=== PATIENT | male | born 1970 | race Caucasian/White ===

== ENCOUNTER 2019-01-09 20:55 | Inpatient (IN) ==
[2019-01-09] MEDS ORDERED: HYDROmorphone 2 MG/1 ML VIAL IV PRN (23:36)
[2019-01-10] MEDS: SODIUM CHLORIDE 0.9% 1,000 ML IV SCH ×2 (00:24→10:07)
[2019-01-10] MEDS: HYDROmorphone 2 MG/1 ML VIAL IV PRN ×2 (00:29→04:25)
[2019-01-10] MEDS: MEROPENEM 1,000 MG in SODIUM CHLORIDE 0.9% 100 ML IV SCH ×3 (01:14→16:25)
[2019-01-10 06:00] LABS: Basophils % 0.3 % (0.0-0.8); Eosinophils % 0.1 % (0.00-10.9); Hematocrit 44.9 VOL% (42.0-52.0); Hemoglobin 14.5 GM/DL (14.0-18.0); Immature Granulocytes % 0.7 %; Immature Granulocytes Absolute 0.11 #; Lymphocytes % 12.5 % (21.2-54.2); Mean Corpuscular HGB Conc 32.3 GM/DL (32-36); Mean Corpuscular Volume 88.9 FL (87-102); Monocytes % 9.8 % (1.7-12.7); Neutrophils % 76.6 % (38.7-73.9); Platelet Count 286 T/CUMM (130-400); Red Blood Count 5.05 MC/CUMM (3.8-5.5); Red Cell Distribution Width 12.7 % (9.3-17.3); White Blood Count 15.6 T/CUMM (4-12)
[2019-01-10 06:20] LABS: Albumin 3.4 G/DL (3.4-5.0); Bilirubin,Total 1.1 MG/DL (0.2-1.0); Calcium 8.8 MG/DL (8.5-10.1); Osmolality,Calculated 283.3 MOS/KG (273-304); Total Protein 6.8 G/DL (6.4-8.3)
[2019-01-10] MEDS ORDERED: INDOMETHACIN SUPP 50 MG SUPP RECTAL ONE (08:52)
[2019-01-10] MEDS ORDERED: ROCURONIUM 100 MG/10 ML VIAL IV ONE (09:00)
[2019-01-10] MEDS ORDERED: LIDOCAINE 2% 5 ML VIAL ONE (09:00)
[2019-01-10] MEDS ORDERED: NEOSTIGMINE 10 MG/10 ML VIAL ONE (09:00)
[2019-01-10] MEDS ORDERED: DEXAMETHASONE 4 MG/1 ML VIAL ONE (09:00)
[2019-01-10] MEDS ORDERED: GLYCOPYRROLATE 0.4 MG/2 ML VIAL ONE (09:00)
[2019-01-10] MEDS ORDERED: PROPOFOL 200 MG/20 ML VIAL IV ONE (09:00)
[2019-01-10] MEDS ORDERED: ONDANSETRON 4 MG/2 ML VIAL ONE (09:00)
[2019-01-10] MEDS: LACTATED RINGERS 1,000 ML IV SCH (10:07)
[2019-01-10] MEDS ORDERED: MIDAZOLAM 2 MG/2 ML VIAL ONE (11:25)
[2019-01-10] MEDS ORDERED: HYDROmorphone 2 MG/1 ML VIAL IV PRN ×2 (11:25)
[2019-01-10] MEDS ORDERED: fentaNYL 100 MCG/2 ML VIAL ONE (11:25)
[2019-01-11] MEDS: MEROPENEM 1,000 MG in SODIUM CHLORIDE 0.9% 100 ML IV SCH ×2 (00:06→08:50)
[2019-01-11] MEDS: SODIUM CHLORIDE 0.9% 1,000 ML IV SCH ×3 (00:07→15:38)
[2019-01-11 06:46] LABS: Basophils % 0.1 % (0.0-0.8); Eosinophils % 0.1 % (0.00-10.9); Hematocrit 42.9 VOL% (42.0-52.0); Hemoglobin 14.4 GM/DL (14.0-18.0); Immature Granulocytes % 0.5 %; Immature Granulocytes Absolute 0.09 #; Lymphocytes # 1.5 10*3/uL (1.4-4.0); Lymphocytes % 8.3 % (21.2-54.2); Mean Corpuscular HGB Conc 33.6 GM/DL (32-36); Mean Corpuscular Volume 87.6 FL (87-102); Mean Platelet Volume 9.2 FL (9.6-12.0); Monocytes % 6.6 % (1.7-12.7); Neutrophils % 84.4 % (38.7-73.9); Platelet Count 316 T/CUMM (130-400); Red Cell Distribution Width 12.1 % (9.3-17.3); White Blood Count 17.5 T/CUMM (4-12)
[2019-01-11 07:19] LABS: Albumin 3.6 G/DL (3.4-5.0); Calcium 8.9 MG/DL (8.5-10.1); Osmolality,Calculated 280.4 MOS/KG (273-304); Total Protein 7.3 G/DL (6.4-8.3)
[2019-01-11] MEDS ORDERED: LIDOCAINE 1% 20 ML VIAL ONE (08:36)
[2019-01-11] MEDS ORDERED: TISSUE ADHESIVE 1 EACH APPLICATOR TOP ONE (08:36)
[2019-01-11] MEDS ORDERED: BUPIVACAINE MPF 0.25% /EPI 30 ML VIAL ONE (08:36)
[2019-01-11] MEDS: LACTATED RINGERS 1,000 ML IV SCH (08:50)
[2019-01-11] MEDS ORDERED: DESFLURANE 1 UNIT/15 MINUTE INH ONE (10:06)
[2019-01-11] MEDS ORDERED: PROPOFOL 200 MG/20 ML VIAL IV ONE (10:06)
[2019-01-11] MEDS ORDERED: DEXAMETHASONE 4 MG/1 ML VIAL ONE (10:07)
[2019-01-11] MEDS ORDERED: GLYCOPYRROLATE 0.4 MG/2 ML VIAL ONE (10:07)
[2019-01-11] MEDS ORDERED: NEOSTIGMINE 10 MG/10 ML VIAL ONE (10:07)
[2019-01-11] MEDS ORDERED: ROCURONIUM 100 MG/10 ML VIAL IV ONE (10:07)
[2019-01-11] MEDS ORDERED: ONDANSETRON 4 MG/2 ML VIAL ONE (10:07)
[2019-01-11] MEDS ORDERED: fentaNYL 100 MCG/2 ML VIAL ONE (10:07)
[2019-01-11] MEDS ORDERED: LACTATED RINGERS 1,000 ML IV ONE (10:08)
[2019-01-11] MEDS ORDERED: KETOROLAC 30 MG/1 ML VIAL ONE (10:08)
[2019-01-11] MEDS ORDERED: ACETAMINOPHEN 1,000 MG/100 ML VIAL IV ONE (10:08)
[2019-01-11 12:41] VITALS: BP 133/86
== END 2019-01-11 15:50 | disposition home or self-care (01) | DRG 419 ==
LOC: N.3E 22:14
PROVIDERS: ADMIT Internal Medicine; ATTEND Internal Medicine
PROC: ERCPWSP (ICD-10-PCS; 2019-01-10 11:20)
PROC: LAPCHOL (2019-01-11 08:44)